=== PATIENT | male | born 1955 | race Caucasian/White ===

== ENCOUNTER 2024-01-08 02:50 | Inpatient (IN) | payer OTHER ==
[2024-01-08] VITALS (9 sets, daily range): BP systolic 121–145; BP diastolic 70–85; PULSE 57–70; RESP 17–20; TEMP 97.5–98.5; O2SAT 91–96
[~2024-01-08] VITALS: Ht 172.7 cm; Wt 89.8 kg
[~2024-01-08 02:50] MED LIST: ONDANSETRON HCL 4 MG/2 ML VIAL IV PRN
[2024-01-08] MEDS: ACETAMINOPHEN 325 MG TAB PO PRN (04:10)
[2024-01-08 07:35] LABS: Basophils # (auto) 0 10 ^3/uL (0-0.2); Basophils % (auto) 0.7 % (0.0-2.0); Eosinophils # (auto) 0.1 10 ^3/uL (0-0.8); Hematocrit 42.6 % (41.0-53.0); Hemoglobin 14.6 g/dL (13.5-17.5); Lymphocytes # (auto) 1.8 10 ^3/uL (0.4-5.4); Lymphocytes % (auto) 33.5 % (10.0-50.0); Mean Corpuscular Hemoglobin 32.1 pg (28.0-32.0); Mean Corpuscular Hgb Conc. 34.3 g/dL (32.0-36.0); Mean Corpuscular Volume 93.6 fL (80.0-100.0); Monocytes # (auto) 0.5 10 ^3/uL (0-1.3); Monocytes % (auto) 8.9 % (0.0-12.0); Neutrophils % (auto) 54.9 % (37.0-80.0); Nucleated Red Blood Cells % 0.2 %; Platelet Count (auto) 140 10^3/uL (140-450); Red Blood Cells 4.55 10^6/uL (4.5-5.90); Red Cell Distribution Width 14.4 % (11.8-14.3); White Blood Cell 5.5 10^3/uL (4.4-10.8)
[2024-01-08 07:41] LABS: Calcium 9.6 mg/dL (8.7-10.4); Chloride 105 mmol/L (98-107); Potassium 4.8 mmol/L (3.5-5.1); Sodium 140 mmol/L (136-145)
[2024-01-08 07:42] LABS: Anion Gap 6 (5-15); Carbon Dioxide 29 mmol/L (20-30)
[2024-01-08 07:46] LABS: Cholesterol 134 mg/dL (< 200)
[2024-01-08 07:47] LABS: BUN/Creatinine Ratio 16.8 (10.0-20.0); Blood Urea Nitrogen 22 mg/dL (9-23); Glucose 97 mg/dL (74-106); Triglycerides 119 mg/dL (< 150)
[2024-01-08 07:48] LABS: LDL Cholesterol 79 mg/dL (< 100)
[2024-01-08 07:49] LABS: HDL Cholesterol 35 mg/dL (40-59)
[2024-01-08] MEDS: ASPirin 81 mg TAB PO SCH (08:21)
[2024-01-08] MEDS: SODIUM CHLORIDE 0.9% 1,000 ML IV SCH (11:00)
[2024-01-08] MEDS: ENOXAPARIN SOD 40 MG/0.4 ML SYRINGE SC ONE (11:15)
[2024-01-08] MEDS ORDERED: ARIP2TAB PO (18:50)
[2024-01-08] MEDS ORDERED: TAMS0.4C39 PO (18:50)
[2024-01-08] MEDS ORDERED: ESCI20TA PO (18:50)
[2024-01-08] MEDS ORDERED: ATOR20TA PO (18:50)
[2024-01-08] MEDS ORDERED: DIVA-91 PO (18:50)
[2024-01-08] MEDS ORDERED: CLOP75TA28 PO (18:50)
[2024-01-08] MEDS: CITALOPRAM HYDROBR 20 MG TAB PO SCH (19:57)
[2024-01-08] MEDS: ATORVASTATIN 20 MG TAB PO SCH (22:08)
[2024-01-09] VITALS (11 sets, daily range): BP systolic 112–138; BP diastolic 56–87; PULSE 62–83; RESP 17–94; TEMP 97.8–99; O2SAT 91–99
[2024-01-09 07:15] LABS: Anion Gap 9 (5-15); Carbon Dioxide 27 mmol/L (20-30); Chloride 102 mmol/L (98-107); Potassium 4.3 mmol/L (3.5-5.1); Sodium 138 mmol/L (136-145)
[2024-01-09 07:16] LABS: Calcium 9.6 mg/dL (8.7-10.4)
[2024-01-09 07:21] LABS: BUN/Creatinine Ratio 16.7 (10.0-20.0); Blood Urea Nitrogen 18 mg/dL (9-23); Glucose 106 mg/dL (74-106)
[2024-01-09 07:22] LABS: Magnesium 2.2 mg/dL (1.6-2.6)
[2024-01-09] MEDS ORDERED: PATIENTS OWN MEDICATION (Escitalopram Oxalate (Lexapro) 1 TAB) PO SCH (10:00)
[2024-01-09] MEDS: ENOXAPARIN SOD 40 MG/0.4 ML SYRINGE SC SCH (10:09)
[2024-01-09] MEDS: CLOPIDOGREL BISULFATE 75 MG TAB PO ONE (14:49)
[2024-01-09 15:44] LABS: Folate (Folic Acid) 15.68 ng/mL (>5.38)
[2024-01-09 15:45] LABS: Free T4 (Free Thyroxine) 0.88 ng/dL (0.89-1.76)
[2024-01-09 16:31] LABS: Urine Bacteria None Seen /hpf (None Seen)
[2024-01-09 16:45] LABS: Urine Blood 1+ /uL (Negative); Urine Clarity Clear (Clear); Urine Color Light-Yellow (Yellow); Urine Protein, UAD Negative (Negative); Urine Specific Gravity 1.012 (1.001-1.035); Urine Urobilinogen Normal (Negative); Urine WBC <1 /hpf (0 - 3)
[2024-01-09] MEDS: ALBUTEROL SULF 2.5 MG/0.5ML(0.5%) NEB SOLN NEB SCH (19:12)
[2024-01-10] VITALS (11 sets, daily range): BP systolic 104–125; BP diastolic 65–73; PULSE 58–72; RESP 16–18; TEMP 98.7–99; O2SAT 92–99
[2024-01-10] MEDS: CLOPIDOGREL BISULFATE 75 MG TAB PO SCH (09:34)
[2024-01-10] MEDS ORDERED: ATOR20TA PO (14:34)
[2024-01-10] MEDS ORDERED: CLOP75TA28 PO (14:34)
== END 2024-01-10 16:28 | disposition home or self-care (01) | DRG 69 ==
LOC: TELE-CENTR 02:50
PROVIDERS: ADMIT Nurse Practitioner Family; ATTEND Hospitalist
DX: G45.9 Transient cerebral ischemic attack, unspecified (principal); N17.9 Acute kidney failure, unspecified; E11.9 Type 2 diabetes mellitus without complications; I48.91 Unspecified atrial fibrillation; I10 Essential (primary) hypertension; M10.9 Gout, unspecified; E78.5 Hyperlipidemia, unspecified; I25.10 Atherosclerotic heart disease of native coronary artery without angina pectoris; Z79.02 Long term (current) use of antithrombotics/antiplatelets; Z80.1 Family history of malignant neoplasm of trachea, bronchus and lung; Z80.3 Family history of malignant neoplasm of breast; Z82.49 Family history of ischemic heart disease and other diseases of the circulatory system; Z86.73 Personal history of transient ischemic attack (TIA), and cerebral infarction without residual deficits; Z83.3 Family history of diabetes mellitus; Z92.3 Personal history of irradiation; I25.2 Old myocardial infarction
CPT/HCPCS: 36415; 70545; 70547; 70551; 71046; 76775; 80048; 80061; 81001; 82607; 82746; 83036; 83735; 83880; 84439; 84443; 85025; 85379; 86803; 92610; 93306; 93886; 94640; 97163; G0378

== ENCOUNTER 2024-07-09 06:05 | Inpatient (IN) | payer OTHER ==
[2024-07-09] VITALS (54 sets, daily range): BP systolic 102–148; BP diastolic 43–108; PULSE 63–100; RESP 7–25; TEMP 97.6–98; O2SAT 93–99
[~2024-07-09] VITALS: Ht 175.3 cm; Wt 87.0 kg
[~2024-07-09 06:05] MED LIST changes: +ACET300T58 PO; +ATOR20TA PO; +CEVI30CA8 OR; +CLOP75TA28 PO; +ESCI20TA PO; -ONDANSETRON HCL 4 MG/2 ML VIAL IV PRN; +TAMS0.4C39 PO
[2024-07-09] MEDS: ceFAZolin 2 GM/D5W100ml 100 ML IV ONE (06:35)
[2024-07-09] MEDS: GELATIN 1 SPONGE SIZE 100 TOP ONE (06:45)
[2024-07-09] MEDS: HEPARIN SODIUM (PORCINE) 5000 UNITS/ML 1ML VIAL ONE (06:45)
[2024-07-09] MEDS: THROMBIN (BOVINE) 5000 UNIT SOL VIAL ONE (06:45)
[2024-07-09] MEDS: LIDOCAINE HCL (LOCAL ANESTH.) 0.5 % 50ML MDV IJ ONE ×2 (06:45)
[2024-07-09] MEDS ORDERED: LIDOCAINE HCL 2% TOP JELLY 5ML TOP ONE (06:53)
[2024-07-09] MEDS ORDERED: ROCURONIUM 10MG/ML 10ML VIAL IV ONE (06:57)
[2024-07-09] MEDS ORDERED: GLYCOPYRROLATE 0.2 MG/ML 1ML VIAL ONE (06:57)
[2024-07-09] MEDS ORDERED: KETAMINE 50mg/ML 1ml syringe ONE (06:57)
[2024-07-09] MEDS ORDERED: PROPOFOL 10 MG/ML 20 ML IV ONE (06:57)
[2024-07-09] MEDS ORDERED: ONDANSETRON HCL 4 MG/2 ML VIAL ONE (06:59)
[2024-07-09] MEDS ORDERED: LIDOCAINE 2% (LOCAL ANESTH.) PF 5ml SDV ONE (06:59)
[2024-07-09] MEDS ORDERED: SODIUM CHLORIDE LOCK 10 ML ONE (06:59)
[2024-07-09] MEDS ORDERED: PHENYLEPHRINE HCL 10 MG/ML VL ONE (06:59)
[2024-07-09] MEDS ORDERED: DexAMETHasone SOD PHOS 10MG/1ML VIAL INJ ONE (06:59)
[2024-07-09] MEDS ORDERED: LIDOCAINE 1% INJ PF 5ML AMP ONE (06:59)
[2024-07-09] MEDS ORDERED: ePHEDrine SULFATE 50 MG/ML AMP ONE (07:48)
[2024-07-09] MEDS ORDERED: ESMOLOL HCL 10 ML IV ONE (08:09)
[2024-07-09] MEDS ORDERED: fentaNYL CITRATE 100 MCG/2 ML VL ONE (08:25)
[2024-07-09] MEDS ORDERED: SUGAMMADEX 200mg/2ml Vial (100MG/ML) IV ONE (08:25)
[2024-07-09] MEDS: LIDOCAINE 1% (LOCAL ANESTH.) PF 5ml SDV ONE (08:51)
[2024-07-09] MEDS: LIDOCAINE 1% HCL (LOCAL ANESTH.) INJ 20ML MDV ONE (09:43)
[2024-07-09] MEDS: BUPIVACAINE 0.25% INJ 50ML VIAL ONE (09:43)
--- NOTE | 2024-07-09 10:10 | POSTOP ---
Post-Operative Note Post-Operative Note Preop Diagnosis Left carotid artery stenosis with TIA Postop Diagnosis: High-grade left carotid artery stenosis Operation performed Left carotid endarterectomy Specimen Left carotid plaque Anesthesia: General Anesthesiologist: General endotracheal tube Blood Loss(fluid mgmt) 300 mL Surgeon Andrew Eugene MD Date 07/09/24 Time 10:08 ANDREW EUGENE Jr., MD Jul 09, 2024 10:10
[2024-07-09] MEDS ORDERED: fentaNYL CITRATE 100 MCG/2 ML VL IV PRN (10:15)
[2024-07-09] MEDS ORDERED: FLUMAZENIL 0.1 MG/ML INJ 10ML MDV IV PRN (10:15)
[2024-07-09] MEDS ORDERED: NALOXONE HCL 0.4 MG/ML VIAL IV PRN (10:15)
[2024-07-09] MEDS ORDERED: ONDANSETRON HCL 4 MG/2 ML VIAL IV PRN (10:15)
[2024-07-09] MEDS ORDERED: hydrALAZINE HCL 20 MG/ML VL IV PRN (10:15)
[2024-07-09] MEDS ORDERED: ePHEDrine SULFATE 50 MG/ML AMP IV PRN (10:15)
--- NOTE | 2024-07-09 10:16 | DVHOP2 ---
Operative Report - 2 Report Details Date: 07/09/24 Preop Diagnosis: Left carotid artery stenosis with TIA Postop Diagnosis: High-grade left carotid artery stenosis Surgeon: Andrew Eugene MD Anesthesiologist: General endotracheal tube Anesthesia: General Consent: The patient was informed of the risks and benefits of the procedure. These include but are not limited to complications of anesthesia, postoperative infection, incomplete relief of symptoms, recurrence of symptoms, damage to blood vessels, nerves and tendons, deep venous thrombosis, pulmonary embolism and possible need for repeat surgery in the future. Estimated Blood Loss: 300 mL Name of Procedure Performed Left carotid endarterectomy Procedure Details Procedure Details: Patient was identified in the preop hold area is being Mr. Pratt at this point in time he was consented in preop by my self who was brought back to the operating room placed the operating room table in supine position after adequate induction of anesthesia antibiotics and time-out. The left neck was prepped and draped in normal surgical fashion. Standard left carotid endarterectomy incision was made. Bovie cauterization was used for hemostasis dissection was taken down through the platysma. The internal jugular vein was then dissected and mobilized laterally this allowed us to gain access to the carotid bifurcation in the common carotid artery was then circumferentially controlled with vessel loops dissection was then taken up to the bifurcation 1% lidocaine preservative-free was injected into the carotid sheath no hemodynamic changes were noted. The external carotid and superior thyroid artery were both mobilized and circumferentially controlled with vessel loops finally the internal carotid artery was mobilized and controlled with vessel loops. 3000 units of heparin was given due to the fact of the patient had been on Plavix the day before. All vessels involved were clamped and an arteriotomy was made in the common carotid artery extended with Sandhu scissors into the internal carotid artery in the plaque extended into the internal carotid artery the plaque was nearly occlusive in the internal carotid artery and was soft. Plaque was removed Lindsey shunt was inserted and the endarterectomy was further completed specimen was sent off. Once the entire lumen was removed of all plaque and debris. A bovine pericardial patch was then sewn to the internal and common carotid artery with six 0 Prolene sutures at the completion anastomosis all vessels were unclamped and flow was restored. This was confirmed by Doppler signals. There was two areas of suture line bleeding which were controlled with a single interrupted sutures. At this point in time no further bleeding was noted. A flat HELENA drain was then placed in the carotid sheath through an exit hole in the lateral aspect of the neck. It was sewn in place with a 3-0 nylon suture. Carotid sheath was then closed with 3-0 Vicryl sutures interruptedly followed by the platysmal layer closed with 3-0 Vicryl sutures in a running fashion skin was closed with 4-0 Monocryl subcuticular suture in a running fashion and 1% lidocaine with 0.25% Marcaine was injected into the the incision site. The skin was then further secured with Dermabond. Sterile dressing was applied patient awoke without any difficulties neurologically intact sponge and needle counts were correct. Patient was taken to the PACU in a stable condition. Specimen: Left carotid plaque Condition Good [facility] MD Jul 09, 2024 10:16
[2024-07-09] MEDS: HYDROmorphone HCL 2 MG/ML VL/or syr IV PRN (10:41)
[2024-07-09] MEDS ORDERED: NITROGLYCERIN 0.4 MG SL TAB SL PRN (11:00)
[2024-07-09] MEDS ORDERED: MORPHINE SULFATE INJ 2 MG/ml SYRG IV PRN (11:00)
--- NOTE | 2024-07-09 15:00 | DVHHP2 ---
History of Present Illness Reason for Visit: Here for carotid artery stenosis for elective left carotid endarterect History of Present Illness This is a 69-year-old gentleman with a left carotid artery stenosis, BPH, hypercholesterolemia, TIA brought into the hospital for elective left carotid endarterectomy surgery by vascular surgeon. Patient underwent successful surgery and postop he is admitted to the ICU. Hospitalist consultation is requested for medical management while he is here. Currently he is comfortable in bed. No complaints. Blood pressure is stable. He has a arterial line in place. Past Medical History Carotid artery stenosis, hyperlipidemia, BPH, TIA Past Surgical History: None Family History: Hyperlipidemia, Hypertension Smoke: No ALCOHOL: rare Lives: with Family Review of Systems Review of Systems No complaints of dizziness or lightheadedness. No headache. No fevers chills or sweats. No chest pain shortness for breath. Other review of systems reviewed normal. Allergies: Coded Allergies: NO KNOWN ALLERGIES (Unverified , 01/08/24) Medications Current Medications Medications Dose Ordered Sig/Sina Route Start Time Stop Time Status Last Admin Dose Admin Nicardipine HCl 250 ml @ 50 mls/hr Q5H IV 07/09/24 06:45 07/09/24 11:55 50 MLS/HR Nitroglycerin 0.4 mg Q5MINP PRN SL 07/09/24 11:00 Morphine Sulfate 2 mg Q30M PRN IV 07/09/24 11:00 Acetaminophen 650 mg Q4HP PRN PO 07/09/24 14:30 Oxycodone/ Acetaminophen 1 tab Q6HP PRN PO 07/09/24 14:30 Atorvastatin Calcium 40 mg DAILY PO 07/10/24 10:00 UNV Tamsulosin HCl 0.4 mg DAILY PO 07/10/24 10:00 UNV Patient Own Medication 1 tab DAILY PO 07/10/24 10:00 UNV Exam Vital Signs Vital Signs Date Time Temp Pulse Resp B/P (MAP) Pulse Ox O2 Delivery O2 Flow Rate FiO2 07/09/24 14:11 78 13 112/49 (70) 97 07/09/24 12:07 97.6 97.6 07/09/24 10:03 Mask 6.0 07/09/24 10:03 96 Exam Comfortable lying in bed. Alert awake oriented x3. HEENT neck supple no JVD pupils equal round react to light. Heart regular rate and rhythm S1-S2 without any audible murmurs. Lungs fair air movement no rales or wheezes. Chest tube will expansion. Abdomen is soft nontender nondistended positive bowel sounds. Extremities no edema positive distal pedal pulses. Assessment/Plan Assessment/Plan Left carotid artery stenosis Status post elective left carotid arterectomy Hyperlipidemia BPH I will resume his home cholesterol and BPH medications. Hold the Plavix for another 24 hours. Monitor his blood pressure. Consider removing arterial line in the morning. Physical therapy evaluation and ambulate as he tolerates. Monitor him overnight in the ICU. Pain and nausea medications. Supportive care and treatment. Otherwise further clinical management per clinical course and postop recovery. Discussed with the patient as well as nurse at bedside regarding care plan. Plan discussed with: Patient, Other My Orders Orders - ABISAI ORTEGA MD Procedure Category Date Status Time Admit ADMIT 07/09/24 Transmitted 10:48 Oxygen By Nasal RT 07/09/24 Transmitted Cannula 10:48 Nitroglycerin PHA 07/09/24 In Process Sublingual (Ntrostat 11:00 Morphine Sulfate PHA 07/09/24 In Process Injection 11:00 Stat Ekg For Chest JUAN 07/09/24 In Process Pain 10:48 Notify Md Of Changes JUAN 07/09/24 In Process From Base 10:48 Pleating Machine Operator For JUAN 07/09/24 In Process 24 Hours 10:48 Emergency Dysrhythmia [facility] 07/09/24 In Process Protocol 10:48 Rhythm Strips Once JUAN 07/09/24 In Process Every Shift 10:48 Hepatitis B Surface LAB 07/09/24 Logged Antigen 12:28 Hepatitis C Antibody LAB 07/09/24 Logged 12:28 Atorvastatin (Lipitor) PHA 07/10/24 Transmitted 10:00 Tamsulosin PHA 07/10/24 Transmitted Hydrochloride (Flomax) 10:00 (Nf) Escitalopram PHA 07/10/24 Transmitted Oxalate (Lexapro) 10:00 Basic Metabolic Panel LAB 07/10/24 Verified 04:00 Complete Blood Count LAB 07/10/24 Verified 04:00 Pt Request For Service PT 07/09/24 Verified 14:58 Ambulate Every 4hours JUAN 07/09/24 Verified 14:58 Problem List: (1) Carotid stenosis, left ABISAI ORTEGA MD Jul 09, 2024 15:00
[2024-07-09] MEDS: OXYCODONE W/ ACETAMINOPHEN 5/325MG TABLET PO PRN (15:48)
[2024-07-09] MEDS: ACETAMINOPHEN 325 MG TAB PO PRN (22:06)
[2024-07-10] VITALS (50 sets, daily range): BP systolic 108–157; BP diastolic 43–88; PULSE 57–87; RESP 9–33; TEMP 98.1–98.7; O2SAT 82–97
[2024-07-10 03:37] LABS: Basophils # (auto) 0 10 ^3/uL (0-0.2); Eosinophils # (auto) 0 10 ^3/uL (0-0.8); Hemoglobin 13.8 g/dL (13.5-17.5); Lymphocytes % (auto) 9.2 % (10.0-50.0); Mean Corpuscular Hemoglobin 31.5 pg (28.0-32.0); Mean Corpuscular Hgb Conc. 34.4 g/dL (32.0-36.0); Mean Corpuscular Volume 91.4 fL (80.0-100.0); Monocytes # (auto) 0.6 10 ^3/uL (0-1.3); Monocytes % (auto) 5.8 % (0.0-12.0); Neutrophils # (auto) 9.1 10 ^3/uL (1.6-8.6); Nucleated Red Blood Cells % 0.1 %; Platelet Count (auto) 166 10^3/uL (140-450); Red Blood Cells 4.38 10^6/uL (4.5-5.90); Red Cell Distribution Width 13.6 % (11.8-14.3); White Blood Cell 10.7 10^3/uL (4.4-10.8)
[2024-07-10 03:57] LABS: Chloride 106 mmol/L (98-107); Potassium 3.8 mmol/L (3.5-5.1); Sodium 139 mmol/L (136-145)
[2024-07-10 03:58] LABS: Anion Gap 8 (5-15); Carbon Dioxide 25 mmol/L (20-31)
[2024-07-10 04:04] LABS: BUN/Creatinine Ratio 22.1 (10.0-20.0); Blood Urea Nitrogen 17 mg/dL (9-23); Glucose 138 mg/dL (74-106)
[2024-07-10] MEDS: DOCUSATE SOD 100 MG CAP PO PRN (06:51)
[2024-07-10] MEDS ORDERED: PATIENTS OWN MEDICATION (Escitalopram Oxalate (Lexapro) 1 TAB) PO SCH (10:00)
[2024-07-10] MEDS: TAMSULOSIN HYDROCHLORIDE 0.4 MG CAP PO SCH (10:21)
[2024-07-10] MEDS: ATORVASTATIN 20 MG TAB PO SCH (10:21)
[2024-07-10] MEDS: CITALOPRAM HYDROBR 20 MG TAB PO SCH (10:21)
--- NOTE | 2024-07-10 11:23 | DVHPN2 ---
Progress Note Date Seen: Jul 10, 2024 Has the PT tested + for MRSA If YES, has PT been informed?: No Medical Necessity Reason Pt with a Central, PICC or Fol: No Subjective Patient reports: No new complaints Review of Systems: HEENT:Normal, CVS:Normal, RESPIRATORY:Normal, GI:Normal, :Normal, MSK:Normal, NEURO:Normal Objective vital signs Vital Sign Date Time Temp Pulse Resp B/P (MAP) Pulse Ox O2 Delivery O2 Flow Rate FiO2 07/10/24 10:00 71 11 136/55 (82) 93 125/63 (83) 07/10/24 10:00 Room Air* 0 N/A Nasal Cannula* 07/10/24 07:00 98.7 98.7 Total Intake and Output 07/09/24 07/09/24 07/10/24 15:00 23:00 07:00 Intake Total 125 ml 925 ml 600 ml Output Total 4 ml 1100 ml 1305 ml Balance 121 ml -175 ml -705 ml medications Current Medications Medications Dose Ordered Sig/Sina Route Start Time Stop Time Status Last Admin Dose Admin Nicardipine HCl 250 ml @ 50 mls/hr Q5H IV 07/09/24 06:45 07/09/24 16:15 25 MLS/HR Nitroglycerin 0.4 mg Q5MINP PRN SL 07/09/24 11:00 Morphine Sulfate 2 mg Q30M PRN IV 07/09/24 11:00 Acetaminophen 650 mg Q4HP PRN PO 07/09/24 14:30 07/09/24 22:06 650 MG Oxycodone/ Acetaminophen 1 tab Q6HP PRN PO 07/09/24 14:30 07/09/24 15:48 1 TAB Atorvastatin Calcium 40 mg DAILY PO 07/10/24 10:00 07/10/24 10:21 40 MG Tamsulosin HCl 0.4 mg DAILY PO 07/10/24 10:00 07/10/24 10:21 0.4 MG Patient Own Medication 1 tab DAILY PO 07/10/24 10:00 UNV Citalopram Hydrobromide 40 mg DAILY PO 07/10/24 10:00 07/10/24 10:21 40 MG Docusate Sodium 100 mg DAILYPRN PRN PO 07/10/24 06:30 07/10/24 06:51 100 MG Examination: GENERAL:Normal, HEENT:Normal, NECK:Normal (Neck incision clean dry and intact no significant swelling. HELENA drain minimal output overnight. Was pulled this morning.), LUNGS:Normal, CVS:Normal, ABDOMEN:Normal, MSK:Normal, SKIN:Normal, NEURO:Normal, :Normal laboratory and microbiology Laboratory Tests 07/10/24 02:58 Test 07/10/24 02:58 Range/Units Serum Glucose 138 H 74-106 mg/dL Labs and/or images reviewed: Labs reviewed by me Problem List/Assessment/Plan Problem List/Assessment/Plan Status post left carotid endarterectomy. Postop day 1. DC a line Out of bed Regular diet Antiplatelet therapy Discharge home today. Plan discussed with: Patient My Orders My Orders Orders - CHINA RED Jr., MD Procedure Category Date Status Time Regular Diet DIET 07/09/24 Transmitted Dinner Acetaminophen Tablet PHA 07/09/24 In Process (Tylenol Tablet) 14:30 Oxycodone W/ Acet PHA 07/09/24 In Process 5/325mg Tab (Percocet 14:30 Mrsa Screen EH 07/09/24 In Process 11:20 Communication Order ORDERS 07/09/24 Transmitted 22:13 Docusate Sodium PHA 07/10/24 In Process Capsule (Colace 06:30 CHINA RED Jr., MD Jul 10, 2024 11:23
--- NOTE | 2024-07-10 13:42 | DVHDS2 ---
Discharge Summary Date of Admission Jul 09, 2024 at 10:48 Date of Discharge: Jul 10, 2024 Labs/Diagnostic Data: Laboratory Results Test 07/10/24 02:58 07/09/24 15:00 White Blood Count 10.7 10^3/uL (4.4-10.8) Red Blood Count 4.38 10^6/uL (4.5-5.90) Hemoglobin 13.8 g/dL (13.5-17.5) Hematocrit 40.0 % (41.0-53.0) Mean Corpuscular Volume 91.4 fL (80.0-100.0) Mean Corpuscular Hemoglobin 31.5 pg (28.0-32.0) Mean Corpuscular Hemoglobin Concent 34.4 g/dL (32.0-36.0) Red Cell Distribution Width 13.6 % (11.8-14.3) Platelet Count 166 10^3/uL (140-450) Mean Platelet Volume 7.8 fL (6.9-10.8) Neutrophils (%) (Auto) 85.0 % (37.0-80.0) Lymphocytes (%) (Auto) 9.2 % (10.0-50.0) Monocytes (%) (Auto) 5.8 % (0.0-12.0) Eosinophils (%) (Auto) 0.0 % (0.0-7.0) Basophils (%) (Auto) 0.0 % (0.0-2.0) Neutrophils # (Auto) 9.1 10 ^3/uL (1.6-8.6) Lymphocytes # (Auto) 1.0 10 ^3/uL (0.4-5.4) Monocytes # (Auto) 0.6 10 ^3/uL (0-1.3) Eosinophils # (Auto) 0 10 ^3/uL (0-0.8) Basophils # (Auto) 0 10 ^3/uL (0-0.2) Nucleated Red Blood Cells 0.1 % Sodium Level 139 mmol/L (136-145) Potassium Level 3.8 mmol/L (3.5-5.1) Chloride Level 106 mmol/L (98-107) Carbon Dioxide Level 25 mmol/L (20-31) Anion Gap 8 (5-15) Blood Urea Nitrogen 17 mg/dL (9-23) Creatinine 0.77 mg/dL (0.700-1.30) Glomerular Filtration Rate Calc 96 mL/min (>90) BUN/Creatinine Ratio 22.1 (10.0-20.0) Serum Glucose 138 mg/dL (74-106) Calcium Level 10.0 mg/dL (8.7-10.4) Other Laboratory Tests 07/10/24 02:58 Brief Hx & Hospital Course: This is a 69-year-old gentleman with a left carotid artery stenosis, BPH, hypercholesterolemia, TIA brought into the hospital for elective left carotid endarterectomy surgery by vascular surgeon. Patient underwent successful surgery and postop he is admitted to the ICU. Hospitalist consultation is requested for medical management while he is here. Currently he is comfortable in bed. No complaints. Blood pressure is stable. He has a arterial line in place. Patient underwent successful endarterectomy surgery. Postop recovery was uneventful. He is re-evaluated by surgeon felt he was stable to be discharged home. His blood pressure is normal. He is tolerating his diet. No pain. He is advised to resume his antiplatelet therapy and statin and other medications at home as he is taking. He was to follow up with vascular surgeon in two weeks. Patient verbalized understanding of his hospital diagnosis, treatment received, discharge medications, discharge instructions and agree with follow-up plan of care as outlined. Consults/Reason for consult Problem List/Assessment/Plan Problem List/Assessment/Plan Status post left carotid endarterectomy. Postop day 1. DC a line Out of bed Regular diet Antiplatelet therapy Discharge home today. Plan discussed with: Patient ANDREW RED Jr., MD Jul 10, 2024 11:23 Operations or Procedures Operative Report - 2 Report Details Date: 07/09/24 Preop Diagnosis: Left carotid artery stenosis with TIA Postop Diagnosis: High-grade left carotid artery stenosis Surgeon: Andrew Red MD Anesthesiologist: General endotracheal tube Anesthesia: General Consent: The patient was informed of the risks and benefits of the procedure. These include but are not limited to complications of anesthesia, postoperative infection, incomplete relief of symptoms, recurrence of symptoms, damage to blood vessels, nerves and tendons, deep venous thrombosis, pulmonary embolism and possible need for repeat surgery in the future. Estimated Blood Loss: 300 mL Name of Procedure Performed Left carotid endarterectomy Procedure Details Procedure Details: Patient was identified in the preop hold area is being Mr. Pratt at this point in time he was consented in preop by my self who was brought back to the operating room placed the operating room table in supine position after adequate induction of anesthesia antibiotics and time-out. The left neck was prepped and draped in normal surgical fashion. Standard left carotid endarterectomy incision was made. Bovie cauterization was used for hemostasis dissection was taken down through the platysma. The internal jugular vein was then dissected and mobilized laterally this allowed us to gain access to the carotid bifurcation in the common carotid artery was then circumferentially controlled with vessel loops dissection was then taken up to the bifurcation 1% lidocaine preservative-free was injected into the carotid sheath no hemodynamic changes were noted. The external carotid and superior thyroid artery were both mobilized and circumferentially controlled with vessel loops finally the internal carotid artery was mobilized and controlled with vessel loops. 3000 units of heparin was given due to the fact of the patient had been on Plavix the day before. All vessels involved were clamped and an arteriotomy was made in the common carotid artery extended with Sandhu scissors into the internal carotid artery in the plaque extended into the internal carotid artery the plaque was nearly occlusive in the internal carotid artery and was soft. Plaque was removed Lindsey shunt was inserted and the endarterectomy was further completed specimen was sent off. Once the entire lumen was removed of all plaque and debris. A bovine pericardial patch was then sewn to the internal and common carotid artery with six 0 Prolene sutures at the completion anastomosis all vessels were unclamped and flow was restored. This was confirmed by Doppler signals. There was two areas of suture line bleeding which were controlled with a single interrupted sutures. At this point in time no further bleeding was noted. A flat HELENA drain was then placed in the carotid sheath through an exit hole in the lateral aspect of the neck. It was sewn in place with a 3-0 nylon suture. Carotid sheath was then closed with 3-0 Vicryl sutures interruptedly followed by the platysmal layer closed with 3-0 Vicryl sutures in a running fashion skin was closed with 4-0 Monocryl subcuticular suture in a running fashion and 1% lidocaine with 0.25% Marcaine was injected into the the incision site. The skin was then further secured with Dermabond. Sterile dressing was applied patient awoke without any difficulties neurologically intact sponge and needle counts were correct. Patient was taken to the PACU in a stable condition. Specimen: Left carotid plaque Condition Good Condition at Discharge: Stable Final Diagnosis/Problems List High-grade left carotid artery stenosis status post endarterectomy Discharge Disposition: Home Discharge Instruct/Medications Diet: Consistent carbohydrate, Cardiac 2g Na,low cholest Activity: No Restrictions, As Tolerated Follow Up/Referral: Dr. Red vascular surgeon next week Medications: As you were taking home medications Continued Medications: Acetaminophen W/ Codeine (Tylenol #4 W/Codeine) 1 Tab Tb 1 TAB PO, TAB Atorvastatin Calcium (Lipitor) 20 Mg Tab 40 MG PO DAILY, #90 TAB Cevimeline Hydrochloride Hemih (Cevimeline Hcl) 30 Mg Cap 30 MG OR DAILY, CAP Clopidogrel Bisulfate (Plavix) 75 Mg Tab 75 MG PO DAILY, #30 TAB Escitalopram Oxalate (Lexapro) 20 Mg Tab 1 TAB PO DAILY, TAB 3 Refills Tamsulosin Hcl (Tamsulosin Hcl) 0.4 Mg Cap 0.4 MG PO DAILY, MG Discharge Statement: "Patient was advised to return to the ER or call 911 if any headaches, dizziness, shortness of breath, chest pain, abdominal pain, bleeding, fevers, or worsening of medical condition. Patient was counseled about treatment plan, medications, possible side effects, patientverbalized understanding. All questions were answered to the best of my ability. This discharge took greater then 30 minutes in planning, reviewing documentation, counseling the patient, and discussing with other team members." ASSESSMENT ASSESSMENT Assessment High-grade left carotid artery stenosis status post endarterectomy ABISAI ORTEGA MD Jul 10, 2024 13:42
== END 2024-07-10 17:13 | disposition home or self-care (01) | DRG 27 ==
LOC: SUR 06:05 → OVERFLOW 10:48 → ICU WEST 11:12
PROVIDERS: ADMIT Hospitalist; ATTEND Surgery Vascular Surgery
PROC: 03U Upper Arteries, Supplement (ICD-10-PCS; 2024-07-09)
PROC: 03UL3KZ Supplement Left Internal Carotid Artery with Nonautologous Tissue Substitute, Percutaneous Approach (ICD-10-PCS; 2024-07-09)
PROC: 03CL3ZZ Extirpation of Matter from Left Internal Carotid Artery, Percutaneous Approach (ICD-10-PCS; principal; 2024-07-09 07:26)
DX: I65.22 Occlusion and stenosis of left carotid artery (principal); E78.00 Pure hypercholesterolemia, unspecified; N40.0 Benign prostatic hyperplasia without lower urinary tract symptoms; Z86.73 Personal history of transient ischemic attack (TIA), and cerebral infarction without residual deficits; Z82.49 Family history of ischemic heart disease and other diseases of the circulatory system; Z79.899 Other long term (current) drug therapy
CPT/HCPCS: 36415; 80048; 85025; 86803; 86850; 86900; 86901; 87081; 87340; 97163; G0378; J1100; J2003; J2405; J2704; J3490